=== PATIENT | female | born 1970 | race Caucasian/White ===

== ENCOUNTER 2020-10-09 09:00 | Inpatient (IN) ==
[2020-10-09] MEDS ORDERED: Nicotine 2 MG GUM BC PRN (11:55)
[2020-10-09] MEDS ORDERED: Mag Hydrox/Al Hydrox/Simeth 30 ML UDC PO PRN (11:55)
[2020-10-09] MEDS ORDERED: MOM Conc 10 ML UD.LIQ PO PRN (11:55)
[2020-10-09] MEDS ORDERED: *HR* LORazepam 2 MG/ML VIAL IM PRN (11:55)
[2020-10-09] MEDS ORDERED: *HR* LORazepam 1 MG TABLET PO PRN (11:55)
[2020-10-09] MEDS ORDERED: traZODone 50 MG TABLET PO PRN (11:55)
[2020-10-09] MEDS ORDERED: Haloperidol Lactate 5 MG/ML VIAL IM PRN (11:55)
[2020-10-09] MEDS ORDERED: haloperidoL 5 MG TABLET PO PRN (11:55)
[2020-10-09] MEDS ORDERED: Tolterodine LA (24 HR) 2 MG CAP.ER.24H PO SCH (12:15)
[2020-10-09 13:09] LABS: Adenovirus Not Detected (Not Detect); Bordetella Pertussis Not Detected (Not Detect); Chlamydophila pneumoniae Not Detected (Not Detect); Coronavirus 229E Not Detected (Not Detect); Coronavirus HKU1 Not Detected (Not Detect); Coronavirus NL63 Not Detected (Not Detect); Coronavirus OC43 Not Detected (Not Detect); Human Metapneumovirus Not Detected (Not Detect); Human Rhinovirus/Enterovirus Not Detected (Not Detect); Influenza A Subtype 2009 H1 Not Detected (Not Detect); Influenza B Not Detected (Not Detect); Mycoplasma pneumoniae Not Detected (Not Detect); Parainfluenza Virus 1 Not Detected (Not Detect); Parainfluenza Virus 2 Not Detected (Not Detect); Parainfluenza Virus 3 Not Detected (Not Detect); Parainfluenza Virus 4 Not Detected (Not Detect); Respiratory Syncytial Virus Not Detected (Not Detect); SARS-CoV-2 Not Detected (Not Detect)
[2020-10-09] MEDS: Ibuprofen 400 MG TABLET PO PRN (16:20)
[2020-10-09] MEDS: Topiramate 25 MG TABLET PO SCH (17:03)
[2020-10-09] MEDS ORDERED: Topiramate 25 MG TABLET PO SCH (21:00)
[2020-10-09] MEDS: Tolterodine LA (24 HR) 2 MG CAP.ER.24H PO SCH (21:17)
[2020-10-09] MEDS: hydrOXYzine pamoate 25 MG CAPSULE PO PRN (21:17)
[2020-10-09] MEDS ORDERED: Acetaminophen 325 MG TABLET PO PRN (21:33)
[2020-10-09] MEDS ORDERED: Acetaminophen 325 MG TABLET PO ONE (22:11)
[2020-10-10] MEDS: Topiramate 25 MG TABLET PO SCH ×3 (08:40→17:15)
[2020-10-10] MEDS: Ibuprofen 400 MG TABLET PO PRN ×2 (08:40→15:04)
[2020-10-10] MEDS: Multivit/Ca/Min/Fe/FA 1 TAB TABLET PO SCH (15:09)
[2020-10-10] MEDS: Fluticasone Propionate Nasal 50 MCG/SPRAY BOTTLE NS SCH ×2 (18:38→21:28)
[2020-10-10] MEDS: traZODone 50 MG TABLET PO PRN (21:25)
[2020-10-10] MEDS: Tolterodine LA (24 HR) 2 MG CAP.ER.24H PO SCH (21:27)
[2020-10-11] MEDS: Topiramate 25 MG TABLET PO SCH ×4 (08:13→17:07)
[2020-10-11] MEDS: Multivit/Ca/Min/Fe/FA 1 TAB TABLET PO SCH (08:15)
[2020-10-11] MEDS: Fluticasone Propionate Nasal 50 MCG/SPRAY BOTTLE NS SCH (08:16)
[2020-10-11] MEDS: Ibuprofen 400 MG TABLET PO PRN ×2 (14:39→21:14)
[2020-10-11] MEDS: hydrOXYzine pamoate 25 MG CAPSULE PO PRN (21:14)
[2020-10-11] MEDS: Tolterodine LA (24 HR) 2 MG CAP.ER.24H PO SCH (21:15)
[2020-10-11] MEDS: traZODone 50 MG TABLET PO PRN (21:56)
[2020-10-12] MEDS: Ibuprofen 400 MG TABLET PO PRN ×3 (07:44→21:16)
[2020-10-12] MEDS: Topiramate 25 MG TABLET PO SCH ×4 (08:06→17:12)
[2020-10-12] MEDS: Multivit/Ca/Min/Fe/FA 1 TAB TABLET PO SCH (08:06)
[2020-10-12] MEDS: Fluticasone Propionate Nasal 50 MCG/SPRAY BOTTLE NS SCH (08:08)
[2020-10-12] MEDS: hydrOXYzine pamoate 25 MG CAPSULE PO PRN ×2 (08:47→12:02)
[2020-10-12] MEDS ORDERED: hydrOXYzine pamoate 25 MG CAPSULE PO ONE (12:11)
[2020-10-12] MEDS ORDERED: hydrOXYzine pamoate 25 MG CAPSULE PO PRN (12:12)
[2020-10-12] MEDS: traZODone 50 MG TABLET PO PRN (21:10)
[2020-10-12] MEDS: Tolterodine LA (24 HR) 2 MG CAP.ER.24H PO SCH (21:11)
[2020-10-13] MEDS: Fluticasone Propionate Nasal 50 MCG/SPRAY BOTTLE NS SCH ×2 (08:12→21:14)
[2020-10-13] MEDS: Topiramate 25 MG TABLET PO SCH ×4 (08:12→16:10)
[2020-10-13] MEDS: Multivit/Ca/Min/Fe/FA 1 TAB TABLET PO SCH (08:13)
[2020-10-13] MEDS: Ibuprofen 400 MG TABLET PO PRN ×2 (10:20→21:15)
[2020-10-13] MEDS: hydrOXYzine pamoate 25 MG CAPSULE PO PRN ×3 (10:49→20:20)
[2020-10-13] MEDS: Tolterodine LA (24 HR) 2 MG CAP.ER.24H PO SCH (21:15)
[2020-10-13] MEDS: traZODone 50 MG TABLET PO PRN (21:15)
[2020-10-14] MEDS: Ibuprofen 400 MG TABLET PO PRN (08:35)
[2020-10-14] MEDS: hydrOXYzine pamoate 25 MG CAPSULE PO PRN ×4 (08:35→21:27)
[2020-10-14] MEDS: Topiramate 25 MG TABLET PO SCH ×4 (08:35→16:50)
[2020-10-14] MEDS: Multivit/Ca/Min/Fe/FA 1 TAB TABLET PO SCH (08:35)
[2020-10-14] MEDS: Fluticasone Propionate Nasal 50 MCG/SPRAY BOTTLE NS SCH (08:36)
[2020-10-14] MEDS: traZODone 50 MG TABLET PO PRN (21:27)
[2020-10-14] MEDS: Tolterodine LA (24 HR) 2 MG CAP.ER.24H PO SCH (21:27)
[2020-10-15] MEDS: hydrOXYzine pamoate 25 MG CAPSULE PO PRN ×3 (01:25→21:06)
[2020-10-15] MEDS: Ibuprofen 400 MG TABLET PO PRN ×2 (01:25→11:22)
[2020-10-15] MEDS: Fluticasone Propionate Nasal 50 MCG/SPRAY BOTTLE NS SCH (08:11)
[2020-10-15] MEDS: Topiramate 25 MG TABLET PO SCH ×4 (08:12→17:19)
[2020-10-15] MEDS: Multivit/Ca/Min/Fe/FA 1 TAB TABLET PO SCH (08:13)
[2020-10-15] MEDS: traZODone 50 MG TABLET PO PRN (21:06)
[2020-10-15] MEDS: Tolterodine LA (24 HR) 2 MG CAP.ER.24H PO SCH (21:07)
[2020-10-16] MEDS: Topiramate 25 MG TABLET PO SCH ×4 (08:54→16:17)
[2020-10-16] MEDS: Multivit/Ca/Min/Fe/FA 1 TAB TABLET PO SCH (08:55)
[2020-10-16] MEDS: Fluticasone Propionate Nasal 50 MCG/SPRAY BOTTLE NS SCH (08:59)
[2020-10-16] MEDS: hydrOXYzine pamoate 25 MG CAPSULE PO PRN ×2 (12:24→17:12)
[2020-10-16] MEDS: Ibuprofen 400 MG TABLET PO PRN (16:18)
[2020-10-16] MEDS: traZODone 50 MG TABLET PO PRN (21:09)
[2020-10-16] MEDS: Tolterodine LA (24 HR) 2 MG CAP.ER.24H PO SCH (21:10)
[2020-10-17] MEDS: hydrOXYzine pamoate 25 MG CAPSULE PO PRN ×4 (03:58→20:15)
[2020-10-17] MEDS: Topiramate 25 MG TABLET PO SCH ×4 (08:17→16:52)
[2020-10-17] MEDS: Multivit/Ca/Min/Fe/FA 1 TAB TABLET PO SCH (08:17)
[2020-10-17] MEDS: Fluticasone Propionate Nasal 50 MCG/SPRAY BOTTLE NS SCH (08:23)
[2020-10-17] MEDS: Ibuprofen 400 MG TABLET PO PRN (09:24)
[2020-10-17] MEDS: Tolterodine LA (24 HR) 2 MG CAP.ER.24H PO SCH (20:15)
[2020-10-17] MEDS ORDERED: Melatonin 3 MG TABLET PO SCH (21:00)
[2020-10-18] MEDS: Topiramate 25 MG TABLET PO SCH ×2 (07:58→08:03)
[2020-10-18] MEDS: Fluticasone Propionate Nasal 50 MCG/SPRAY BOTTLE NS SCH (08:00)
[2020-10-18] MEDS: Multivit/Ca/Min/Fe/FA 1 TAB TABLET PO SCH (08:42)
[2020-10-18 10:13] VITALS: BP 127/85
[2020-10-18] MEDS: hydrOXYzine pamoate 25 MG CAPSULE PO PRN (13:28)
== END 2020-10-18 19:15 | disposition home or self-care (01) | DRG 918 ==
LOC: EMEROOARM 09:00 → 1ANU 13:15
PROVIDERS: ADMIT Psychiatry & Neurology Psychiatry; ATTEND Psychiatry & Neurology Psychiatry